=== PATIENT | female | born 1985 | race Caucasian/White ===

== ENCOUNTER 2016-11-21 15:52 | Emergency (ER) | payer OTHER ==
--- NOTE | ~2016-11-21 | CR72 ---
[facility]. [facility] A Service of [facility] RADIOLOGY TEXT RESULTS PATIENT: MORRIS HADDAD LOCATION: SED : 87 UNIT #: [id number] AGE: [address]: Mason Ji MD SEX: F ORDER DR: [id number] [address] [address] [id number] E MR#: [id number] Acc #: [id number] NAME: MORRIS HADDAD : 1985 SEX: F STUDY DATE/TIME: 11/21/2016 15:20 UNIT: SED ROOM: STUDY DESCRIPTION: CR Chest Single View Portable Attending Physician: Emil Fraire M.D. Ordering Physician: Emil Fraire M.D. MEDICAL IMAGING REPORT This report is preliminary unless electronic signature is present. EXAM Portable chest INDICATIONS Chest pain today, anxiety. COMPARISON STUDIES No comparisons. FINDINGS The lungs are well expanded and clear. Heart size is normal. Visualized osseous structures are unremarkable. IMPRESSION Negative chest. Dictated by... Quan Toth M.D. THIS IS AN ELECTRONICALLY VERIFIED REPORT Quan Toth M.D. at 11/22/2016 9:32 AM ARS/pcl TD: 11/21/2016 17:04 JOB #: [id number] MEDICAL IMAGING REPORT Page 1 of 1
--- NOTE | ~2016-11-21 | EKG ---
PATIENT: MORRIS HADDAD UNIT #: [id number] Ventricular Rate: 63 BPM Atrial Rate: 63 BPM P-R Interval: 152 ms QRS Duration: 88 ms Q-T Interval: 424 ms QTC Calculation(Bezet): 433 ms P Leary: 48 degrees Calculated R Leary: 78 degrees Calculated T Leary: 40 degrees Diagnosis Line: Normal sinus rhythm Diagnosis Line: Normal ECG Diagnosis Line: No previous ECGs available Diagnosis Line: Confirmed by LUCERO CHAIREZ MD ([id number]) on 11/22/2016 Diagnosis Line: 2:48:19 PM INTERPRETING MD: CONTRERAS NYE
[2016-11-21 15:49] LABS: BASOPHIL% 0.7 % (0-2.5); DIFF IND NO; EOSINOPHIL% 0.8 % (0.0-7.0); HEMATOCRIT 35.9 % (35.0-45.0); HEMOGLOBIN 12.3 gm/dL (12.0-16.0); LYMPHOCYTE# 2.1 X10e3 (1.0-3.5); LYMPHOCYTE% 37.1 % (17.0-45.0); MEAN CELL VOLUME 90.4 FL (83-96); MEAN CORPUSCULAR HEMOGLOBIN 30.9 PG (28-34); MEAN CORPUSCULAR HGB CONC 34.2 g/dL (30-36); MONOCYTE# 0.4 X10e3 (0-1.0); MONOCYTE% 7.3 % (3.0-12.0); NEUTROPHIL# 3.1 X10e3 (1.5-7.1); NEUTROPHIL% 54.1 % (40-75); PLATELET COUNT 251 X10e3 (140-420); RED BLOOD COUNT 3.97 X10e (3.90-5.30); RED CELL DISTRIBUTION WIDTH 12.7 % (11.0-15.5); WHITE BLOOD COUNT 5.8 X10e3 (4.0-10.5)
[~2016-11-21 15:52] MED LIST: CITRATE OF MAG296 M1 PO; COLACE PO; FLEXERIL10 MG PO; IBUPROFEN800 MG PO; LEXAPRO PO; MOTRIN600 MG PO; NAPROSYN500 MG PO; NEURONTIN300 MG PO; NO MEDICATIONS; PEPCID PO; PERCOCET PO; PHENERGAN25 M1 PO; PRENATAL1 TA1; TYLENOL #3; VICODIN 5/1 TAB 5/50 PO; VITAMIN D10000 UNIT; VOLTAREN50 MG PO; XANAX1 MG PO; [UNRECOGNIZED DRUG - OTHER] PR
[2016-11-21 16:00] LABS: POC - CKMB <1.0 ng/mL (0.0-7.9); POC - TROPONIN <0.05 ng/mL (<=0.05)
[2016-11-21 16:30] LABS: URINE BILIRUBIN NEG (NEG); URINE BLOOD 3+ (NEG); URINE COLOR YELLOW; URINE GLUCOSE NEG (NORM); URINE KETONE NEG (NEG); URINE LEUKOCYTE ESTERASE 1+ (NEG); URINE NITRATE NEG (NEG); URINE PH 6.5 (5-8); URINE PROTEIN 1+ (NEG); URINE SPECIFIC GRAVITY 1.025 (1.003-1.035)
[2016-11-21 16:35] LABS: ALBUMIN SERUM 4.3 g/dL (3.5-5.0); BILIRUBIN, DIRECT 0.1 mg/dL (0.0-0.2); BILIRUBIN,INDIRECT 0.4 mg/dL (0.0-0.9); BILIRUBIN,TOTAL 0.5 mg/dL (0.2-2.0); BUN/CREATININE RATIO 31.42; CREATININE SERUM 0.7 mg/dL (0.6-1.4); GLOM FILT RATE Estimated 116.3 mL/min (>60); POTASSIUM 3.2 mmol/L (3.5-5.1); PROTEIN TOTAL SERUM 7.6 g/dL (6.0-8.3)
[2016-11-21 16:35] LABS: MICRO INDICATED? YES; URINE APPEARANCE SL HAZY; URINE SOURCE CLEAN CATCH
[2016-11-21 16:38] LABS: URINE WBC 25-50 /[HPF] (0-5)
[2016-11-21 16:39] LABS: CULTURE INDICATED? YES; URINE BACTERIA 2+ (NEG); URINE SQUAMOUS EPITHELIAL CELL MODERATE /[HPF]
[2016-11-21 16:42] LABS: AMPHETAMINE NEG (NEG); BARBITURATES NEG (NEG); BENZODIAZEPINES POS (NEG); COCAINE NEG (NEG); MARIJUANA NEG (NEG); OPIATES NEG (NEG); TRICYCLIC ANTIDEPRESSANTS NEG (NEG); U METHADONE NEG (NEG)
[2016-11-21 17:11] LABS: ACETAMINOPHEN <10 ug/mL; SALICYLATE <4.0 mg/dL
[2016-11-21 17:12] LABS: ALCOHOL BLOOD <5 mg/dL ([0,])
[2016-11-21 17:22] LABS: THYROID STIMULATING HORMONE 0.67 uIU/ml (0.34-5.60)
== END 2016-11-21 19:53 | disposition home or self-care (01) ==
LOC: SED 15:52
PROVIDERS: Emergency Medicine
DX: F41.9 Anxiety disorder, unspecified (principal); E16.2 Hypoglycemia, unspecified; N39.0 Urinary tract infection, site not specified
CPT/HCPCS: 36415; 71010; 80048; 80076; 80307; 81003; 82533; 82553; 82947; 84443; 84484; 84703; 85025; 87086; 93005; 99283; G0480